=== PATIENT | male | born 1945 | race Hispanic/Latino ===

== ENCOUNTER → 2018-01-27 | Outpatient (CLI) | payer OTHER | LOC: RAH 13:43 | PROVIDERS: ATTEND Physical Medicine & Rehabilitation | DX: M50.20 Other cervical disc displacement, unspecified cervical region (principal) | CPT/HCPCS: 72141 ==

== ENCOUNTER → 2019-03-16 | Outpatient (CLI) | payer OTHER, MEDICARE | END | disposition home or self-care (01) | LOC: OIH 13:37 | PROVIDERS: ATTEND Internal Medicine Cardiovascular Disease | DX: M47.894 Other spondylosis, thoracic region (principal); M85.88 Other specified disorders of bone density and structure, other site; J91.0 Malignant pleural effusion | CPT/HCPCS: 71046 ==

== ENCOUNTER → 2021-02-25 | Outpatient (CLI) | payer OTHER, MEDICARE | END | disposition home or self-care (01) | LOC: RAH 13:22 | PROVIDERS: ATTEND Physical Medicine & Rehabilitation | DX: R53.1 Weakness (principal); J90 Pleural effusion, not elsewhere classified; M47.812 Spondylosis without myelopathy or radiculopathy, cervical region | CPT/HCPCS: 70540 ==

== ENCOUNTER 2021-08-28 09:02 | Inpatient (IN) | payer OTHER, MEDICARE ==
[~2021-08-28] VITALS: Ht 167.6 cm; Wt 63.5 kg
[2021-08-28] VITALS (7 sets, daily range): BP systolic 151–179; BP diastolic 73–88
[2021-08-28 09:35] LABS: CREATININE 4.1 mg/dL (0.5-1.5); POTASSIUM 5.2 mmol/L (3.5-5.1)
[2021-08-28 09:46] LABS: ALBUMIN 2.7 g/dL (3.5-5.0); BILIRUBIN,TOTAL 0.5 mg/dL (0.2-1.0); MAGNESIUM 1.9 mg/dL (1.80-2.40); TOTAL PROTEIN, SERUM 6.6 g/dL (6.0-8.3)
[2021-08-28 10:07] LABS: B-TYPE NATRIURETIC PEPTIDE > 5000 pg/mL (0-100)
[2021-08-28 10:22] LABS: BASOPHILS % (AUTO) 0.5 % (0.0-5.0); EOSINOPHILS % (AUTO) 0.6 % (0.0-8.0); HEMATOCRIT 30.3 % (42-54); LYMPHOCYTES % (AUTO) 10.5 % (21.0-51.0); MEAN CORPUSCULAR HEMOGLOBIN 28.5 pg (27.0-33.0); MEAN CORPUSCULAR VOLUME 91.8 fL (79-99); MONOCYTES % (AUTO) 6.3 % (3.0-13.0); NEUTROPHILS % (AUTO) 81.8 % (40.0-77.0); PLATELET COUNT (AUTO) 145 K/uL (130-400); RED CELL DISTRIBUTION WIDTH 19.4 % (11.0-15.5); WHITE BLOOD COUNT (AUTO) 6.2 K/uL (4.8-10.8)
[2021-08-28] MEDS: FUROSEMIDE 40MG VIAL IVP SCH (10:31)
[2021-08-28] MEDS ORDERED: DIPHENHYDRAMINE HCL 25 MG CAPSULE PO PRN (12:00)
[2021-08-28] MEDS ORDERED: GUAIFENESIN-DM 200/20 MG 10 ML PO PRN (12:00)
[2021-08-28] MEDS ORDERED: LACTULOSE 20 GM/30 ML UDCUP PO PRN (12:00)
[2021-08-28] MEDS ORDERED: ACETAMINOPHEN 325 MG TAB PO PRN (12:00)
[2021-08-28] MEDS ORDERED: NITROGLYCERIN 0.4 MG SL TAB SL PRN (12:00)
[2021-08-28] MEDS ORDERED: MAG/ALUM/SIMETH 30 ML UDCUP PO PRN (12:00)
[2021-08-28] MEDS: FUROSEMIDE 40MG VIAL IV SCH (12:00)
[2021-08-28] MEDS ORDERED: HYDRALAZINE 20MG/ML VIAL IV PRN (12:00)
[2021-08-28 12:30] LABS: HEMOGLOBIN A1C 9.4 % (4.0-6.0)
[2021-08-28] MEDS ORDERED: DEXTROSE 50%-WATER 50 ML DISP.SYRIN IV PRN (12:30)
[2021-08-28] MEDS ORDERED: GLUCAGON 1MG KIT 1 MG ML IM PRN (12:30)
[2021-08-28] MEDS ORDERED: ISOS30TA92 PO (14:11)
[2021-08-28] MEDS ORDERED: LISI40TA9 PO (14:19)
[2021-08-28] MEDS ORDERED: GLIP2.5T2 PO (14:19)
[2021-08-28] MEDS ORDERED: FURO40TA5 PO (14:21)
[2021-08-28] MEDS ORDERED: CARV6.25 PO (14:21)
[2021-08-28] MEDS ORDERED: ROSU40TA21 PO (14:22)
[2021-08-28] MEDS ORDERED: ALPR0.255 PO (14:29)
[2021-08-28] MEDS ORDERED: CITA10TA89 PO (14:31)
[2021-08-28] MEDS ORDERED: UMEC1DIS IH (14:34)
[2021-08-28 15:51] LABS: INR 1.15 (0.85-1.15); PROTHROMBIN TIME 12.4 SEC (9.6-11.6)
[2021-08-28 15:53] LABS: PARTIAL THROMBOPLASTIN TIME 29.6 SEC (26.3-35.5)
[2021-08-28] MEDS: INSULIN HUMULIN R 100 UNIT/ML 3ML SQ SCH ×2 (16:30→22:23)
[2021-08-28 17:51] LABS: SPECIMENTYPE,BODY FLUID PLEURAL
[2021-08-28 17:52] LABS: APPEARANCE BODY FLUID CLEAR (CLEAR); BODY FLUID RBC 33 /cu. mm.; BODY FLUID WBC 18 /cu. mm.; COLOR,BODY FLUID YELLOW (LT YELLOW); TOTAL VOLUME,BODY FLUID 1550 mL
[2021-08-28 18:15] LABS: BF EOSINOPHIL 1 %; BF LYMPHOCYTE 81 %; BF MESOTHELIAL 6 %
[2021-08-28] MEDS: CITALOPRAM 20 MG TABLET PO SCH (21:14)
[2021-08-28] MEDS: CARVEDILOL 6.25 MG TABLET PO SCH (21:14)
[2021-08-28] MEDS: HEPARIN 5,000 UNIT VIAL SQ SCH (22:22)
[2021-08-29] VITALS: BP 134/52
[2021-08-29] MEDS: FUROSEMIDE 40MG VIAL IV SCH ×2 (01:29→13:54)
[2021-08-29 04:00] VITALS: BP 110/56
[2021-08-29 05:07] LABS: CREATININE 3.9 mg/dL (0.5-1.5); POTASSIUM 4.9 mmol/L (3.5-5.1)
[2021-08-29] MEDS: INSULIN HUMULIN R 100 UNIT/ML 3ML SQ SCH ×4 (07:30→21:00)
[2021-08-29 08:10] VITALS: BP 138/45
[2021-08-29] MEDS: **HM**Umeclidinium Brm/Vilanterol Tr (Anoro Ellipta 62.5-25 Mcg IH SCH (09:00)
[2021-08-29] MEDS: FAMOTIDINE 20MG VIAL IV SCH (09:18)
[2021-08-29] MEDS: ISOSORBIDE MONO 30MG SR TAB PO SCH (09:18)
[2021-08-29] MEDS: HEPARIN 5,000 UNIT VIAL SQ SCH ×2 (09:19→22:44)
[2021-08-29] MEDS: ATORVASTATIN 40 MG TABLET PO SCH (09:20)
[2021-08-29] MEDS: GLIPIZIDE XL 2.5MG TAB PO SCH (09:23)
[2021-08-29] MEDS: CARVEDILOL 6.25 MG TABLET PO SCH ×2 (09:26→20:12)
[2021-08-29] MEDS: FUROSEMIDE 40MG VIAL IVP SCH (09:28)
[2021-08-29 11:36] VITALS: BP 121/71
[2021-08-29 16:02] VITALS: BP 113/48
[2021-08-29] MEDS: ACETAMINOPHEN WITH CODEINE 1 TAB TAB PO PRN (16:17)
[2021-08-29 20:00] VITALS: BP 139/67
[2021-08-29] MEDS: ALPRAZOLAM 0.25 MG TABLET PO PRN (20:11)
[2021-08-29] MEDS: CITALOPRAM 20 MG TABLET PO SCH (20:12)
[2021-08-30] VITALS (7 sets, daily range): BP systolic 102–150; BP diastolic 43–66
[2021-08-30] MEDS: FUROSEMIDE 40MG VIAL IV SCH (01:57)
[2021-08-30 05:22] LABS: ALBUMIN 2.6 g/dL (3.5-5.0); CREATININE 3.8 mg/dL (0.5-1.5); PHOSPHORUS 5.4 mg/dL (2.5-4.9)
[2021-08-30] MEDS: INSULIN HUMULIN R 100 UNIT/ML 3ML SQ SCH ×4 (07:30→21:00)
[2021-08-30] MEDS: **HM**Umeclidinium Brm/Vilanterol Tr (Anoro Ellipta 62.5-25 Mcg IH SCH (09:00)
[2021-08-30] MEDS: FAMOTIDINE 20MG VIAL IV SCH (09:05)
[2021-08-30] MEDS: HEPARIN 5,000 UNIT VIAL SQ SCH ×2 (09:05→21:07)
[2021-08-30] MEDS: ISOSORBIDE MONO 30MG SR TAB PO SCH (09:06)
[2021-08-30] MEDS: FUROSEMIDE 40 MG TABLET PO SCH ×2 (09:06→16:53)
[2021-08-30] MEDS: GLIPIZIDE XL 2.5MG TAB PO SCH (09:07)
[2021-08-30] MEDS: HYDRALAZINE HCL 10 MG TABLET PO SCH ×3 (09:07→21:06)
[2021-08-30] MEDS: CARVEDILOL 6.25 MG TABLET PO SCH ×2 (09:07→21:06)
[2021-08-30] MEDS: ATORVASTATIN 40 MG TABLET PO SCH (09:08)
[2021-08-30 09:44] LABS: RETICULOCYTE % (AUTO) 1.47 % (0.42-2.23)
[2021-08-30] MEDS: CITALOPRAM 20 MG TABLET PO SCH (21:05)
[2021-08-30] MEDS: NICOTINE 21 MG/ 24 HR PATCH TD SCH (21:06)
[2021-08-30] MEDS: ALPRAZOLAM 0.25 MG TABLET PO PRN (21:07)
[2021-08-31 03:59] VITALS: BP 154/66
[2021-08-31 04:19] LABS: BASOPHILS % (AUTO) 0.7 % (0.0-5.0); EOSINOPHILS % (AUTO) 0.7 % (0.0-8.0); HEMATOCRIT 29.2 % (42-54); LYMPHOCYTES % (AUTO) 17.3 % (21.0-51.0); MEAN CORPUSCULAR HGB CONC 30.8 g/dL (32.0-36.0); MONOCYTES % (AUTO) 8.3 % (3.0-13.0); NEUTROPHILS % (AUTO) 72.3 % (40.0-77.0); PLATELET COUNT (AUTO) 129 K/uL (130-400); RED BLOOD CELL COUNT(AUTO) 3.21 MIL/uL (4.50-6.20); RED CELL DISTRIBUTION WIDTH 19.4 % (11.0-15.5); WHITE BLOOD COUNT (AUTO) 4.5 K/uL (4.8-10.8)
[2021-08-31 04:30] LABS: CREATININE 4.2 mg/dL (0.5-1.5)
[2021-08-31 04:37] LABS: % IRON SATURATION 9.2 % (30-44)
[2021-08-31 07:00] VITALS: BP 140/52
[2021-08-31] MEDS: INSULIN HUMULIN R 100 UNIT/ML 3ML SQ SCH ×3 (07:30→21:00)
[2021-08-31] MEDS: **HM**Umeclidinium Brm/Vilanterol Tr (Anoro Ellipta 62.5-25 Mcg IH SCH (09:00)
[2021-08-31] MEDS: HEPARIN 5,000 UNIT VIAL SQ SCH ×2 (09:00→22:08)
[2021-08-31 11:00] VITALS: BP 163/60
[2021-08-31 11:10] LABS: INR 1.08 (0.85-1.15); PROTHROMBIN TIME 11.7 SEC (9.6-11.6)
[2021-08-31 11:11] LABS: PARTIAL THROMBOPLASTIN TIME 31.5 SEC (26.3-35.5)
[2021-08-31] MEDS: GLIPIZIDE XL 2.5MG TAB PO SCH (12:30)
[2021-08-31] MEDS: ATORVASTATIN 40 MG TABLET PO SCH (12:31)
[2021-08-31] MEDS: CARVEDILOL 6.25 MG TABLET PO SCH ×2 (12:32→22:04)
[2021-08-31] MEDS: ISOSORBIDE MONO 30MG SR TAB PO SCH (12:32)
[2021-08-31] MEDS: FUROSEMIDE 40 MG TABLET PO SCH ×2 (12:32→16:16)
[2021-08-31] MEDS: FAMOTIDINE 20MG VIAL IV SCH (12:33)
[2021-08-31] MEDS: HYDRALAZINE HCL 10 MG TABLET PO SCH ×3 (12:33→22:03)
[2021-08-31 16:00] VITALS: BP 142/64
[2021-08-31] MEDS: ACETAMINOPHEN WITH CODEINE 1 TAB TAB PO PRN (16:17)
[2021-08-31 19:49] VITALS: BP 148/55
[2021-08-31] MEDS: CITALOPRAM 20 MG TABLET PO SCH (22:02)
[2021-08-31] MEDS: NICOTINE 21 MG/ 24 HR PATCH TD SCH (22:04)
[2021-08-31 23:42] VITALS: BP 146/59
[2021-09-01 03:59] VITALS: BP 145/58
[2021-09-01 04:34] LABS: BASOPHILS % (AUTO) 0.4 % (0.0-5.0); EOSINOPHILS % (AUTO) 0.9 % (0.0-8.0); HEMATOCRIT 27.9 % (42-54); LYMPHOCYTES % (AUTO) 12.9 % (21.0-51.0); MEAN CORPUSCULAR HEMOGLOBIN 28.3 pg (27.0-33.0); MEAN CORPUSCULAR HGB CONC 30.5 g/dL (32.0-36.0); MONOCYTES % (AUTO) 7.5 % (3.0-13.0); NEUTROPHILS % (AUTO) 77.9 % (40.0-77.0); PLATELET COUNT (AUTO) 114 K/uL (130-400); RED CELL DISTRIBUTION WIDTH 19.3 % (11.0-15.5); WHITE BLOOD COUNT (AUTO) 5.6 K/uL (4.8-10.8)
[2021-09-01 04:49] LABS: CREATININE 3.9 mg/dL (0.5-1.5); POTASSIUM 4.9 mmol/L (3.5-5.1)
[2021-09-01] MEDS: INSULIN HUMULIN R 100 UNIT/ML 3ML SQ SCH ×4 (06:43→20:55)
[2021-09-01 07:00] VITALS: BP 161/61
[2021-09-01] MEDS: **HM**Umeclidinium Brm/Vilanterol Tr (Anoro Ellipta 62.5-25 Mcg IH SCH (09:00)
[2021-09-01] MEDS: HEPARIN 5,000 UNIT VIAL SQ SCH ×2 (09:00→20:54)
[2021-09-01 11:00] VITALS: BP 162/65
[2021-09-01] MEDS: ACETAMINOPHEN WITH CODEINE 1 TAB TAB PO PRN (12:25)
[2021-09-01] MEDS: ISOSORBIDE MONO 30MG SR TAB PO SCH (12:27)
[2021-09-01] MEDS: GLIPIZIDE XL 2.5MG TAB PO SCH (12:27)
[2021-09-01] MEDS: FUROSEMIDE 40 MG TABLET PO SCH ×2 (12:27→17:35)
[2021-09-01] MEDS: HYDRALAZINE HCL 10 MG TABLET PO SCH ×3 (12:28→20:54)
[2021-09-01] MEDS: FAMOTIDINE 20MG VIAL IV SCH (12:28)
[2021-09-01] MEDS: CARVEDILOL 6.25 MG TABLET PO SCH ×2 (12:28→20:54)
[2021-09-01] MEDS: ATORVASTATIN 40 MG TABLET PO SCH (12:29)
[2021-09-01 16:00] VITALS: BP 148/56
[2021-09-01] MEDS: METOLAZONE 2.5 MG TABLET PO SCH (17:38)
[2021-09-01 20:00] VITALS: BP 135/61
[2021-09-01] MEDS: NICOTINE 21 MG/ 24 HR PATCH TD SCH (20:55)
[2021-09-01] MEDS: CITALOPRAM 20 MG TABLET PO SCH (20:55)
[2021-09-02] VITALS: BP 138/77
[2021-09-02 04:00] VITALS: BP 140/56
[2021-09-02 04:48] LABS: BASOPHILS % (AUTO) 0.4 % (0.0-5.0); EOSINOPHILS % (AUTO) 0.9 % (0.0-8.0); HEMATOCRIT 28.3 % (42-54); MEAN CORPUSCULAR HEMOGLOBIN 28.2 pg (27.0-33.0); MEAN CORPUSCULAR HGB CONC 30.7 g/dL (32.0-36.0); MEAN CORPUSCULAR VOLUME 91.6 fL (79-99); MONOCYTES % (AUTO) 9.1 % (3.0-13.0); NEUTROPHILS % (AUTO) 76.4 % (40.0-77.0); PLATELET COUNT (AUTO) 117 K/uL (130-400); RED BLOOD CELL COUNT(AUTO) 3.09 MIL/uL (4.50-6.20); RED CELL DISTRIBUTION WIDTH 19.4 % (11.0-15.5); WHITE BLOOD COUNT (AUTO) 4.6 K/uL (4.8-10.8)
[2021-09-02 05:06] LABS: CREATININE 3.8 mg/dL (0.5-1.5); POTASSIUM 4.8 mmol/L (3.5-5.1)
[2021-09-02] MEDS: INSULIN HUMULIN R 100 UNIT/ML 3ML SQ SCH ×3 (06:34→15:38)
[2021-09-02] MEDS: ATORVASTATIN 40 MG TABLET PO SCH (08:34)
[2021-09-02] MEDS: FUROSEMIDE 40 MG TABLET PO SCH ×2 (08:34→16:51)
[2021-09-02] MEDS: ISOSORBIDE MONO 30MG SR TAB PO SCH (08:34)
[2021-09-02] MEDS: CARVEDILOL 6.25 MG TABLET PO SCH (08:35)
[2021-09-02] MEDS: FAMOTIDINE 20MG VIAL IV SCH (08:35)
[2021-09-02] MEDS: HYDRALAZINE HCL 10 MG TABLET PO SCH ×2 (08:35→13:30)
[2021-09-02] MEDS: HEPARIN 5,000 UNIT VIAL SQ SCH (08:38)
[2021-09-02] MEDS: GLIPIZIDE XL 2.5MG TAB PO SCH (08:39)
[2021-09-02 08:48] VITALS: BP 158/67
[2021-09-02] MEDS: **HM**Umeclidinium Brm/Vilanterol Tr (Anoro Ellipta 62.5-25 Mcg IH SCH (09:00)
[2021-09-02 12:06] VITALS: BP 149/59
[2021-09-02] MEDS: METOLAZONE 2.5 MG TABLET PO SCH (13:00)
[2021-09-02] MEDS ORDERED: HYDR-3420 PO (13:06)
[2021-09-02 16:30] VITALS: BP 147/81
== END 2021-09-02 19:08 | disposition home or self-care (01) | DRG 291 ==
LOC: EDH 09:02 → EDHIP 11:52 → 4CH 16:53
PROVIDERS: ADMIT Hospitalist; ATTEND Hospitalist
PROC: 0W993ZZ Drainage of Right Pleural Cavity, Percutaneous Approach (ICD-10-PCS; principal; 2021-08-28)
DX: I13.2 Hypertensive heart and chronic kidney disease with heart failure and with stage 5 chronic kidney disease, or end stage renal disease (principal); I50.43 Acute on chronic combined systolic (congestive) and diastolic (congestive) heart failure; J96.01 Acute respiratory failure with hypoxia; N18.6 End stage renal disease; N17.9 Acute kidney failure, unspecified; I47.2 Ventricular tachycardia; J91.8 Pleural effusion in other conditions classified elsewhere; I42.0 Dilated cardiomyopathy; E87.70 Fluid overload, unspecified; K21.9 Gastro-esophageal reflux disease without esophagitis; Z20.822 Contact with and (suspected) exposure to COVID-19; E11.22 Type 2 diabetes mellitus with diabetic chronic kidney disease; E78.5 Hyperlipidemia, unspecified; D63.1 Anemia in chronic kidney disease; E87.5 Hyperkalemia; I25.10 Atherosclerotic heart disease of native coronary artery without angina pectoris; D69.6 Thrombocytopenia, unspecified; I27.20 Pulmonary hypertension, unspecified; F17.200 Nicotine dependence, unspecified, uncomplicated; I35.1 Nonrheumatic aortic (valve) insufficiency; Z91.15 Patient's noncompliance with renal dialysis; Z79.899 Other long term (current) drug therapy
CPT/HCPCS: 32555; 36415; 71045; 76770; 80048; 80053; 80069; 82550; 82607; 82728; 82746; 82945; 82948; 83036; 83540; 83550; 83615; 83735; 83874; 83880; 83986; 84132; 84157; 84484; 85025; 85045; 85610; 85730; 87071; 87205; 87635; 88112; 88305; 89051; 93005; 93306; 93356; 97039; C1729; C9803; G0378; J1644; J1815; J1940; J3490